=== PATIENT | female | born 1960 | race Caucasian/White ===

== ENCOUNTER 2017-10-23 07:00 | Emergency (ER) | payer BC ==
[2017-10-23 08:01] LABS: BASO % 0.6 % (0.0-1.0); EOS # 0.1 10^3/uL (0.0-0.50); EOS % 2.8 % (0.0-3.0); HEMATOCRIT 40.9 % (36.0-47.0); HEMOGLOBIN 13.8 g/dl (12.0-16.0); IMMATURE GRANULOCYTE % 0.3 % (0-0); LYMPH # 1.2 10^3/uL (1.5-4.5); LYMPH % 38.3 % (24.0-44.0); MEAN CORPUSCULAR HEMOGLOBIN 29.6 pg (27.0-33.0); MEAN CORPUSCULAR HGB CONC 33.7 g/dl (32.0-36.5); MEAN CORPUSCULAR VOLUME 87.8 fl (80.0-96.0); MONO # 0.2 10^3/uL (0.0-0.8); MONO % 7.5 % (0.0-5.0); NEUTROPHILS # 1.6 10^3/uL (1.8-7.7); NEUTROPHILS % 50.5 % (36.0-66.0); PLATELET COUNT, AUTOMATED 134 10^3/uL (150-450); RED BLOOD COUNT 4.66 10^6/uL (4.00-5.40); WHITE BLOOD COUNT 3.2 10^3/uL (4.0-10.0)
[2017-10-23 08:06] LABS: KETONE, URINE AUTO RFX TRACE mg/dL (NEGATIVE); MUCUS, URINE RFX SMALL (NEGATIVE); NITRITE, URINE AUTO RFX NEGATIVE (NEGATIVE); RBC, URINE AUTO RFX TNTC /HPF (0-3); SPECIFIC GRAVITY UR AUTO RFX 1.029 (1.002-1.035); SQUAM EPITHELIAL CELL UR AURFX 3 /HPF (0-6); WBC, URINE AUTO RFX 4 /HPF (0-3)
[2017-10-23 08:07] LABS: LEUKOCYTE ESTERASE UR AUTO RFX TRACE (NEGATIVE)
[2017-10-23] MEDS: NS 1,000 ML IV (08:08)
[2017-10-23 08:22] LABS: ANION GAP 6 MEQ/L (8-16); BLOOD UREA NITROGEN 13 MG/DL (7-18); CALCIUM LEVEL 8.7 MG/DL (8.5-10.1); CARBON DIOXIDE LEVEL 30 MEQ/L (21-32); CHLORIDE LEVEL 103 MEQ/L (98-107); CREATININE FOR GFR 0.81 MG/DL (0.55-1.02); GLOMERULAR FILTRATION RATE > 60.0 (>51); GLUCOSE, FASTING 239 MG/DL (70-105); POTASSIUM SERUM 3.2 MEQ/L (3.5-5.1); SODIUM LEVEL 139 MEQ/L (136-145)
[2017-10-23] MEDS ORDERED: POTASSIUM CHLORIDE 10 MEQ SR TABLET As Ordered (10:44)
[2017-10-23] MEDS: POTASSIUM CHLORIDE 10 MEQ SR TABLET PO (10:53)
== END 2017-10-23 10:58 | disposition home or self-care (01) ==
LOC: M ED 07:00
DX: R10.9 Unspecified abdominal pain (principal); R31.9 Hematuria, unspecified; E87.6 Hypokalemia; E11.9 Type 2 diabetes mellitus without complications; I10 Essential (primary) hypertension; K21.9 Gastro-esophageal reflux disease without esophagitis; G89.29 Other chronic pain; M54.9 Dorsalgia, unspecified; Z79.899 Other long term (current) drug therapy; Z79.84 Long term (current) use of oral hypoglycemic drugs; Z87.891 Personal history of nicotine dependence
CPT/HCPCS: 76775

== ENCOUNTER → 2017-11-29 | Outpatient (CLI) | payer BC | LOC: M WHC 08:42 | DX: Z12.31 Encounter for screening mammogram for malignant neoplasm of breast (principal); Z78.0 Asymptomatic menopausal state | CPT/HCPCS: 77067 ==

== ENCOUNTER → 2017-11-29 | Outpatient (REF) | payer BC | LOC: M SFHCWAGY 08:57 | DX: Z12.4 Encounter for screening for malignant neoplasm of cervix (principal) | CPT/HCPCS: G0123 ==

== ENCOUNTER → 2018-01-16 | Day surgery (SDC) | payer BC ==
[~2018-01-16] MED LIST: LIDOCAINE 1% MDV 20ML VIAL As Ordered; PROPOFOL 200 MG/20 ML VIAL As Ordered
[2018-01-16] MEDS: NS 1,000 ML IV (07:45)
== END | disposition home or self-care (01) ==
LOC: M OPP 07:20
DX: Z12.11 Encounter for screening for malignant neoplasm of colon (principal); D12.4 Benign neoplasm of descending colon; K57.30 Diverticulosis of large intestine without perforation or abscess without bleeding; K64.8 Other hemorrhoids; I10 Essential (primary) hypertension; E78.5 Hyperlipidemia, unspecified; E11.9 Type 2 diabetes mellitus without complications; K21.9 Gastro-esophageal reflux disease without esophagitis; M19.90 Unspecified osteoarthritis, unspecified site; M54.2 Cervicalgia; F41.9 Anxiety disorder, unspecified; Z78.0 Asymptomatic menopausal state; Z87.442 Personal history of urinary calculi; Z79.84 Long term (current) use of oral hypoglycemic drugs; Z79.899 Other long term (current) drug therapy; Z80.0 Family history of malignant neoplasm of digestive organs; Z80.1 Family history of malignant neoplasm of trachea, bronchus and lung
CPT/HCPCS: 45385

== ENCOUNTER → 2018-02-03 | Outpatient (CLI) | payer BC ==
[2018-02-03 08:05] LABS: BASO % 0.7 % (0.0-1.0); EOS # 0.1 10^3/uL (0.0-0.50); EOS % 2.6 % (0.0-3.0); HEMATOCRIT 40.7 % (36.0-47.0); HEMOGLOBIN 13.8 g/dl (12.0-15.5); IMMATURE GRANULOCYTE % 0.2 % (0-3.0); LYMPH # 1.5 10^3/uL (1.5-4.5); LYMPH % 34.8 % (24.0-44.0); MEAN CORPUSCULAR HEMOGLOBIN 29.8 pg (27.0-33.0); MEAN CORPUSCULAR HGB CONC 33.9 g/dl (32.0-36.5); MEAN CORPUSCULAR VOLUME 87.9 fl (80.0-96.0); MONO # 0.3 10^3/uL (0.0-0.8); MONO % 7.4 % (0.0-5.0); NEUTROPHILS # 2.3 10^3/uL (1.8-7.7); NEUTROPHILS % 54.3 % (36.0-66.0); PLATELET COUNT, AUTOMATED 164 10^3/uL (150-450); RED BLOOD COUNT 4.63 10^6/uL (4.00-5.40); WHITE BLOOD COUNT 4.2 10^3/uL (4.0-10.0)
[2018-02-03 08:24] LABS: ESTIMATED AVERAGE GLUCOSE 189 MG/DL (60-110); HEMOGLOBIN A1c 8.2 %
[2018-02-03 08:27] LABS: ALBUMIN/GLOBULIN RATIO 1.25 (1.00-1.93); ALKALINE PHOSPHATASE 68 U/L (45-117); ALT/SGPT 56 U/L (12-78); ANION GAP 9 MEQ/L (8-16); AST/SGOT 22 U/L (7-37); BILIRUBIN,TOTAL 0.4 MG/DL (0.2-1.0); BLOOD UREA NITROGEN 15 MG/DL (7-18); CALCIUM LEVEL 8.8 MG/DL (8.5-10.1); CARBON DIOXIDE LEVEL 29 MEQ/L (21-32); CHLORIDE LEVEL 104 MEQ/L (98-107); GLOMERULAR FILTRATION RATE > 60.0 (>51); GLUCOSE, FASTING 148 MG/DL (70-100); POTASSIUM SERUM 3.6 MEQ/L (3.5-5.1); SODIUM LEVEL 142 MEQ/L (136-145); TOTAL PROTEIN 7.2 GM/DL (6.4-8.2)
== END ==
LOC: M LAB 07:41
DX: E11.9 Type 2 diabetes mellitus without complications (principal)

== ENCOUNTER → 2018-10-28 | Outpatient (CLI) | payer BC ==
[~2018-10-28] MED LIST changes: +ASTE137S; +ATOR1TAB19 PO; -LIDOCAINE 1% MDV 20ML VIAL As Ordered; +LISI10TA4 PO; +LISIPOW PO; +METF500T4 PO; +NAPR-885 PO; +NEXIUM PO; +PERCOCET PO; -PROPOFOL 200 MG/20 ML VIAL As Ordered; +TYLE325T5 PO; +TYLENOL PO; +[UNRECOGNIZED DRUG - CODE] PO; +[UNRECOGNIZED DRUG - OTHER] PO
--- NOTE | 2018-10-29 06:14 | REP ---
Clinical: Radiculopathy. Comparison: 07/21/2013 . Technique: AP, lateral, flexion/extension, bilateral oblique, and open-mouth views. Findings: The patient is noted to be status post anterior fixation at C5-C7. Alignment and lordosis is maintained. There is no evidence for acute fracture / compression injury or subluxation. No significant degenerative changes are appreciated. Oblique views demonstrate patent neural foramen. Open mouth view demonstrates normal C1-C2 articulation and odontoid process. Impression: Status post anterior fixation. Otherwise normal, age-appropriate cervical spine series Electronically Signed by Ryland Mclaughlin MD 10/29/2018 06:06 A
== END ==
LOC: M RAD 16:24
PROVIDERS: ATTEND Family Medicine
DX: M54.12 Radiculopathy, cervical region (principal)

== ENCOUNTER → 2018-12-30 | Outpatient (REF) | payer BC ==
[2018-12-30 14:09] LABS: BASO % 0.3 % (0.0-1.0); EOS # 0.2 10^3/uL (0.0-0.50); EOS % 1.7 % (0.0-3.0); HEMATOCRIT 42.5 % (36.0-47.0); HEMOGLOBIN 14.8 g/dl (12.0-15.5); LYMPH % 22.5 % (24.0-44.0); MEAN CORPUSCULAR HEMOGLOBIN 29.4 pg (27.0-33.0); MEAN CORPUSCULAR HGB CONC 34.8 g/dl (32.0-36.5); MEAN CORPUSCULAR VOLUME 84.3 fl (80.0-96.0); MONO # 0.7 10^3/uL (0.0-0.8); MONO % 7.8 % (0.0-5.0); NEUTROPHILS # 5.9 10^3/uL (1.8-7.7); NEUTROPHILS % 66.4 % (36.0-66.0); PLATELET COUNT, AUTOMATED 278 10^3/uL (150-450); RED BLOOD COUNT 5.04 10^6/uL (4.00-5.40); WHITE BLOOD COUNT 8.9 10^3/uL (4.0-10.0)
[2018-12-30 14:29] LABS: ALBUMIN 4.1 GM/DL (3.2-5.2); ALT/SGPT 104 U/L (12-78); AMYLASE 39 U/L (25-115); BILIRUBIN,TOTAL 0.6 MG/DL (0.2-1.0); BLOOD UREA NITROGEN 13 MG/DL (7-18); CALCIUM LEVEL 9.4 MG/DL (8.5-10.1); CARBON DIOXIDE LEVEL 26 MEQ/L (21-32); CHLORIDE LEVEL 97 MEQ/L (98-107); CREATININE FOR GFR 0.78 MG/DL (0.55-1.30); GLOMERULAR FILTRATION RATE > 60.0 (>51); GLUCOSE, FASTING 158 MG/DL (70-100); LIPASE 180 U/L (73-393); POTASSIUM SERUM 2.9 MEQ/L (3.5-5.1); SODIUM LEVEL 136 MEQ/L (136-145); TOTAL PROTEIN 7.3 GM/DL (6.4-8.2)
== END ==
LOC: M LAB REF 13:37
PROVIDERS: ATTEND Family Medicine
DX: R19.7 Diarrhea, unspecified (principal)

== ENCOUNTER → 2019-01-01 | Outpatient (CLI) | payer BC ==
[2019-01-01 09:30] LABS: BLOOD UREA NITROGEN 10 MG/DL (7-18); CALCIUM LEVEL 9.1 MG/DL (8.5-10.1); CARBON DIOXIDE LEVEL 31 MEQ/L (21-32); CHLORIDE LEVEL 100 MEQ/L (98-107); CREATININE FOR GFR 0.78 MG/DL (0.55-1.30); GLOMERULAR FILTRATION RATE > 60.0 (>51); GLUCOSE, FASTING 198 MG/DL (70-100); POTASSIUM SERUM 3.7 MEQ/L (3.5-5.1); SODIUM LEVEL 140 MEQ/L (136-145)
== END ==
LOC: M LAB 08:00
PROVIDERS: ATTEND Family Medicine
DX: E87.6 Hypokalemia (principal)

== ENCOUNTER → 2019-01-23 | Outpatient (REF) | payer BC ==
[~2019-01-23] MED LIST changes: +OXYC1TAB23 PO; -PERCOCET PO
== END ==
LOC: M LAB REF 12:59
PROVIDERS: ATTEND Family Medicine
DX: Z12.4 Encounter for screening for malignant neoplasm of cervix (principal)

== ENCOUNTER → 2019-01-23 | Outpatient (REF) | payer BC | LOC: M SFHCWAGY 08:40 | PROVIDERS: ATTEND Family Medicine | DX: Z12.4 Encounter for screening for malignant neoplasm of cervix (principal) ==

== ENCOUNTER → 2019-01-23 | Outpatient (CLI) | payer BC ==
--- NOTE | 2019-01-23 09:15 | REPMRS ---
Patient History The patient states she has not had a clinical breast exam in over a year. Patient is postmenopausal. Family history of colorectal cancer at age 50 or over in maternal grandmother. Digital Woman Screen Mammo: January 23, 2019 - Exam #: [id number] Bilateral CC and MLO view(s) were taken. Technologist: Mylene Mcclain, Technologist Prior study comparison: November 29, 2017, digital woman screen mammo performed at [facility]. March 13, 2011, bilateral digital mammo screening bilat performed at [facility]. January 24, 2009, bilateral digital mammo screening bilat performed at [facility]. FINDINGS: There are scattered fibroglandular densities. There has been no change in the appearance of the mammogram from the prior studies. There is a mild amount of scattered fibroglandular density which is fairly symmetric. There is no interval development of dominant mass, architectural distortion, or clustered microcalcification suggestive of malignancy. 3-D tomosynthesis shows no additional findings. Assessment: BI-RADS/ACR category 1 mammogram. Negative Mammogram. Recommendation Routine screening mammogram of both breasts in 1 year (for women over age 40). This patient's Lifetime Breast Cancer RIsk is estimated at 5.6 %. This mammogram was interpreted with the aid of an FDA-approved computer-aided dectection system. Electronically Signed By: Dirk Can MD 01/23/19 0915
== END ==
LOC: M WHC 08:07
PROVIDERS: ATTEND Family Medicine
DX: Z12.31 Encounter for screening mammogram for malignant neoplasm of breast (principal); Z78.0 Asymptomatic menopausal state

== ENCOUNTER 2019-05-03 20:22 | Emergency (ER) | payer BC ==
[~2019-05-03] VITALS: Ht 157.5 cm; Wt 79.1 kg
[2019-05-03 21:03] LABS: BASO # 0.1 10^3/uL (0.0-0.2); EOS % 15.5 % (0.0-3.0); HEMATOCRIT 41.2 % (36.0-47.0); HEMOGLOBIN 13.6 g/dl (12.0-15.5); LYMPH # 2.2 10^3/uL (1.5-4.5); LYMPH % 34.9 % (24.0-44.0); MEAN CORPUSCULAR HEMOGLOBIN 29.8 pg (27.0-33.0); MEAN CORPUSCULAR VOLUME 90.2 fl (80.0-96.0); MONO # 0.4 10^3/uL (0.0-0.8); MONO % 6.8 % (0.0-5.0); NEUTROPHILS # 2.6 10^3/uL (1.8-7.7); NEUTROPHILS % 41.5 % (36.0-66.0); PLATELET COUNT, AUTOMATED 154 10^3/uL (150-450); RED BLOOD COUNT 4.57 10^6/uL (4.00-5.40); WHITE BLOOD COUNT 6.2 10^3/uL (4.0-10.0)
[2019-05-03 21:19] LABS: ALBUMIN 3.8 GM/DL (3.2-5.2); ALT/SGPT 42 U/L (12-78); BILIRUBIN,DIRECT < 0.1 MG/DL (0.0-0.2); BILIRUBIN,TOTAL 0.3 MG/DL (0.2-1.0); BLOOD UREA NITROGEN 9 MG/DL (7-18); CALCIUM LEVEL 9.2 MG/DL (8.5-10.1); CARBON DIOXIDE LEVEL 28 MEQ/L (21-32); CHLORIDE LEVEL 104 MEQ/L (98-107); CREATININE FOR GFR 0.75 MG/DL (0.55-1.30); GLOMERULAR FILTRATION RATE > 60.0 (>51); GLUCOSE, FASTING 186 MG/DL (70-100); LIPASE 98 U/L (73-393); POTASSIUM SERUM 3.6 MEQ/L (3.5-5.1); SODIUM LEVEL 141 MEQ/L (136-145)
[2019-05-03] MEDS ORDERED: ONDANSETRON 4MG/2ML VIAL (J2405) IV ONE (21:45)
[2019-05-03] MEDS ORDERED: NS 1,000 ML IV ONE (21:45)
[2019-05-03 21:52] LABS: TROPONIN I < 0.02 NG/ML (< 0.10)
[2019-05-03] MEDS ORDERED: KETOROLAC 30 MG/ML VIAL (J1885) IV ONE (23:00)
--- NOTE | 2019-05-03 23:12 | REPVR ---
EXAM: US Abdomen Limited, Right Upper Quadrant EXAM DATE/TIME: 05/03/2019 10:18 PM CLINICAL HISTORY: 58 years old, female; Abdominal pain; Acute; Additional info: Ruq pain, nausea TECHNIQUE: Imaging protocol: Real-time ultrasound of the abdomen with image documentation. Examination was focused on the right upper quadrant. COMPARISON: RENAL US 10/23/2017 8:13 AM FINDINGS: Liver: The liver is diffusely echogenic relative to the right kidney, findings consistent with steatosis. Gallbladder: 3.6 x 1.6 cm gallstone within the gallbladder. Positive sonographic Macias's sign. Findings consistent with cholecystitis. Common bile duct: Normal. Measures 4.3 mm. No stones. No dilation. Pancreas: Visualized segments of the pancreas appear unremarkable. Right kidney: Right kidney measures 12.7 x 6 x 5.4 cm. IMPRESSION: 1. Hepatic steatosis. 2. 3.6 x 1.6 cm gallstone within the gallbladder. Positive sonographic Macias's sign. Findings consistent with cholecystitis. Electronically signed by: Noman Hunter On 05/03/2019 23:11:50 PM
[2019-05-03 23:25] VITALS: BP 130/60
[2019-05-03] MEDS ORDERED: ONDA4TAB6 PO (23:26)
--- NOTE | 2019-05-04 05:51 | ECGEPIP ---
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 Order Number: [id number] Reading MD: Hermilo Jennings Measurements Intervals [place] Rate: 65 P: 11 KS: 184 QRS: -7 QRSD: 98 T: 22 QT: 450 QTc: 469 Interpretive Statements SINUS RHYTHM LOW QRS VOLTAGE IN PRECORDIAL LEADS INCOMPLETE RIGHT BUNDLE BRANCH BLOCK NSTTW ABNORMALITIES NO PRIORS FOR COMPARISON Electronically Signed on 05-04-2019 5:51:31 EDT by Hermilo Jennings
--- NOTE | 2019-05-11 08:19 | ED PDOC ---
Post-Departure Follow-Up alexandria linder and tammie faxed formal report of us for fu Julianne Steiner MD May 11, 2019 08:19
[2019-05-13] MEDS ORDERED: HYDR25TAB PO (10:45)
[2019-05-13] MEDS ORDERED: FLON1SPR (10:45)
[2019-05-13] MEDS ORDERED: NEXI40GR PO (10:45)
[2019-05-13] MEDS ORDERED: CLAR10CA3 PO (10:45)
[2019-05-13] MEDS ORDERED: ACET-840 PO (10:45)
[2019-05-13] MEDS ORDERED: IBUP-1114 PO (10:45)
== END 2019-05-03 23:35 | disposition home or self-care (01) ==
LOC: M ED 20:22
DX: K80.50 Calculus of bile duct without cholangitis or cholecystitis without obstruction (principal); I45.19 Other right bundle-branch block; K76.0 Fatty (change of) liver, not elsewhere classified; I10 Essential (primary) hypertension; E78.00 Pure hypercholesterolemia, unspecified; K21.9 Gastro-esophageal reflux disease without esophagitis; J44.9 Chronic obstructive pulmonary disease, unspecified; M54.9 Dorsalgia, unspecified; M54.2 Cervicalgia; E11.9 Type 2 diabetes mellitus without complications; F41.9 Anxiety disorder, unspecified; J30.2 Other seasonal allergic rhinitis; Z79.84 Long term (current) use of oral hypoglycemic drugs; Z79.899 Other long term (current) drug therapy
CPT/HCPCS: 76705; 80048; 80076; 81001; 83690; 84484; 85025; 87086; 93005; 96374; 96375; 99284; J1885; J2405

== ENCOUNTER → 2019-05-12 | Outpatient (CLI) | payer BC ==
[~2019-05-12] MED LIST changes: +ACET-840 PO; +CLAR10CA3 PO; +FLON1SPR; +HYDR25TAB PO; +IBUP-1114 PO; +NEXI40GR PO; +ONDA4TAB6 PO
[2019-05-12 08:21] LABS: BASO # 0.1 10^3/uL (0.0-0.2); BASO % 1.4 % (0.0-1.0); EOS # 0.2 10^3/uL (0.0-0.50); EOS % 4.6 % (0.0-3.0); HEMATOCRIT 40.2 % (36.0-47.0); HEMOGLOBIN 13.2 g/dl (12.0-15.5); LYMPH # 1.3 10^3/uL (1.5-4.5); LYMPH % 38.2 % (24.0-44.0); MEAN CORPUSCULAR HEMOGLOBIN 29.9 pg (27.0-33.0); MEAN CORPUSCULAR HGB CONC 32.8 g/dl (32.0-36.5); MONO # 0.3 10^3/uL (0.0-0.8); MONO % 9.2 % (0.0-5.0); NEUTROPHILS # 1.6 10^3/uL (1.8-7.7); NEUTROPHILS % 46.6 % (36.0-66.0); PLATELET COUNT, AUTOMATED 208 10^3/uL (150-450); RED BLOOD COUNT 4.42 10^6/uL (4.00-5.40); WHITE BLOOD COUNT 3.5 10^3/uL (4.0-10.0)
[2019-05-12 08:42] LABS: ALBUMIN 3.6 GM/DL (3.2-5.2); ALT/SGPT 29 U/L (12-78); BILIRUBIN,TOTAL 0.4 MG/DL (0.2-1.0); BLOOD UREA NITROGEN 14 MG/DL (7-18); CALCIUM LEVEL 9.2 MG/DL (8.5-10.1); CARBON DIOXIDE LEVEL 30 MEQ/L (21-32); CHLORIDE LEVEL 102 MEQ/L (98-107); CHOLESTEROL LEVEL 127 MG/DL (<200); CHOLESTEROL RISK RATIO 3.527 (<5); CREATININE FOR GFR 0.72 MG/DL (0.55-1.30); GLOMERULAR FILTRATION RATE > 60.0 (>51); GLUCOSE, FASTING 142 MG/DL (70-100); HDL CHOLESTEROL 36 MG/DL (>40); LDL CHOLESTEROL 52 MG/DL (<100); NON-HDL-C 91 MG/DL; POTASSIUM SERUM 3.8 MEQ/L (3.5-5.1); SODIUM LEVEL 140 MEQ/L (136-145); TOTAL PROTEIN 7.2 GM/DL (6.4-8.2); TRIGLYCERIDES LEVEL 195 MG/DL (<150)
[2019-05-12 08:52] LABS: MALB URINE SIEMENS 14.2 MG/L; MAU/CREAT RATIO 8.4 MCG/MG (0.0-30.0)
[2019-05-12 09:23] LABS: HEMOGLOBIN A1c 8.6 %
== END ==
LOC: M LAB 07:14
PROVIDERS: ATTEND Family Medicine
DX: Z01.818 Encounter for other preprocedural examination (principal); E11.9 Type 2 diabetes mellitus without complications

== ENCOUNTER 2019-05-22 08:52 | Day surgery (SDC) | payer BC ==
[~2019-05-22] VITALS: Ht 157.5 cm; Wt 75.7 kg
[~2019-05-22 08:52] MED LIST changes: +LIDOCAINE 1% MDV 20ML VIAL SQ PRN; +LR 1,000 ML IV ONE
[2019-05-22] MEDS ORDERED: BUPIVACAINE/EPIN 0.25% 30 ML VIAL As Ordered ONE (10:53)
[2019-05-22] MEDS ORDERED: ONDANSETRON 4MG/2ML VIAL (J2405) As Ordered ONE (11:16)
[2019-05-22] MEDS ORDERED: MIDAZOLAM INJ 2 MG/2 ML VIAL (J2250) As Ordered ONE (11:16)
[2019-05-22] MEDS ORDERED: fentaNYL 100 MCG/2 ML INJECTION (J3010) As Ordered ONE ×2 (11:16→12:15)
[2019-05-22] MEDS ORDERED: LIDOCAINE 2% INJ 100 MG/5 ML SDV (FOR ANES.) As Ordered ONE (11:16)
[2019-05-22] MEDS ORDERED: ROCURONIUM BROMIDE 50 MG/5 ML VIAL As Ordered ONE (11:16)
[2019-05-22] MEDS ORDERED: dexameTHASONE 4 MG/ML 1ML VIAL (J1100) As Ordered ONE (11:16)
[2019-05-22] MEDS ORDERED: SUGAMMADEX SODIUM 500 MG/5 ML VIAL (BRIDION) As Ordered ONE (11:16)
[2019-05-22] MEDS ORDERED: PROPOFOL 200 MG/20 ML VIAL As Ordered ONE (11:16)
[2019-05-22] MEDS ORDERED: KETOROLAC 60 MG/2 ML VIAL (J1885) As Ordered ONE (11:45)
[2019-05-22] MEDS: fentaNYL 100 MCG/2 ML INJECTION (J3010) IV PRN ×4 (12:16→12:37)
[2019-05-22] MEDS ORDERED: LR 1,000 ML IV SCH (12:30)
[2019-05-22] MEDS ORDERED: ONDANSETRON 4MG/2ML VIAL (J2405) IV PRN (12:30)
[2019-05-22] MEDS ORDERED: METOCLOPRAMIDE INJ 10MG/2ML VIAL (J2765) IV PRN (12:30)
[2019-05-22] MEDS ORDERED: NORCO, ANEXSIA 5/325MG TABLET (HYDROcodone/ACETAMINOPHEN) PO PRN (12:30)
[2019-05-22] MEDS: PERCOCET 5MG/325MG TAB PO PRN ×2 (12:34→13:09)
[2019-05-22 14:05] VITALS: BP 119/64
--- NOTE | 2019-05-26 14:08 | RO ---
DATE OF PROCEDURE: 05/22/2019 PREOPERATIVE DIAGNOSIS: Symptomatic cholelithiasis. POSTOPERATIVE DIAGNOSIS: Symptomatic cholelithiasis. PROCEDURE: Laparoscopic cholecystectomy. SURGEON: Dr. España AUTO DRIVER: None. ANESTHESIA: General. ESTIMATED BLOOD LOSS: 5. COMPLICATIONS: None. INDICATIONS FOR PROCEDURE: The patient is a 58-year-old female who presents for right upper quadrant abdominal pain and found to have symptomatic cholelithiasis with a 3.6 cm gallstone. Recommendation is to proceed laparoscopic, possible open cholecystectomy. Risks and benefits of the procedure not limited to, but including bleeding, damage to surrounding structures, need for further surgery were discussed in detail with the patient. Informed was obtained and procedure was planned. PROCEDURE IN DETAIL: The patient was brought back to operating room #8. After sufficient sedation, the abdomen was sterilely prepped. Next, a time-out was done to confirm proper patient and proper procedure. Following that an 11 mm incision was made in left upper quadrant. Veress needle inserted and the abdomen was insufflated to 50 mmHg. Next, a 5 mm supraumbilical midline incision was made just above the umbilicus. A 5 mm Optiview port was used to gain access to the abdomen. Once the abdomen was entered, the Veress needle site was examined and there were no signs of any injury. The Veress needle was removed and replaced with an 11 mm port. Two more 5 mm ports were then placed in the right upper quadrant. The fundus of gallbladder was elevated up towards the right shoulder. Omental adhesions were carefully dissected free using blunt dissection along with blunt dissection to remove the stomach as well. Once this was all freed up, I was able to dissect around the neck of the gallbladder with blunt dissection. Once the cystic duct and cystic artery were both clearly identified. They were both doubly clipped and cut. The gallbladder was then removed from gallbladder fossa using electrocautery. Electrocautery was used to control some hemostasis on the liver bed. Once this was all completed, the gallbladder was placed inside of a 10 mm EndoCatch bag and removed from one of the 5 mm ports and reached in with some long Nelly's to try and break up the large gallstone but was unable to do so. I then brought the gallbladder out through the subxiphoid port to the left of midline. I had open up the incision to remove it due to large 3.6 cm stone. Once it was removed, I used Vicente-Lopez needle and #0 Vicryl suture to reapproximate the fascia, #3-0 Vicryl interrupted sutures used to close the subcutaneous tissues and #4-0 Vicryl to close the skin incisions. The abdomen was then cleaned and dried, 4 x 4 and tape were applied, thus ending procedure.
== END 2019-05-22 14:20 | disposition home or self-care (01) ==
LOC: M SDC 08:52
PROVIDERS: ATTEND Surgery
DX: K80.10 Calculus of gallbladder with chronic cholecystitis without obstruction (principal); I10 Essential (primary) hypertension; E78.5 Hyperlipidemia, unspecified; E11.9 Type 2 diabetes mellitus without complications; Z79.84 Long term (current) use of oral hypoglycemic drugs; K44.9 Diaphragmatic hernia without obstruction or gangrene; K21.9 Gastro-esophageal reflux disease without esophagitis; Z79.899 Other long term (current) drug therapy
CPT/HCPCS: 47562; 88304; J1100; J1885; J2250; J2405; J3010

== ENCOUNTER 2019-07-02 07:00 | Outpatient (RCR) | payer BC, OTHER ==
[~2019-07-02 07:00] MED LIST changes: -LIDOCAINE 1% MDV 20ML VIAL SQ PRN; -LR 1,000 ML IV ONE; +METF-791 PO; -METF500T4 PO
== END 2019-07-06 ==
LOC: M PT 07:00
PROVIDERS: ATTEND Orthopaedic Surgery
DX: Z47.89 Encounter for other orthopedic aftercare (principal); M50.321 Other cervical disc degeneration at C4-C5 level; Z98.1 Arthrodesis status

== ENCOUNTER → 2019-08-06 | Outpatient (RCR) | payer OTHER | LOC: M PT 07-07 08:43 | PROVIDERS: ATTEND Orthopaedic Surgery | DX: M50.321 Other cervical disc degeneration at C4-C5 level (principal); Z98.1 Arthrodesis status ==

== ENCOUNTER 2019-08-12 07:00 | Outpatient (RCR) | payer OTHER | END 2019-09-05 | LOC: M PT 07:00 | PROVIDERS: ATTEND Orthopaedic Surgery | DX: Z47.89 Encounter for other orthopedic aftercare (principal) ==

== ENCOUNTER → 2020-10-20 | Outpatient (CLI) | payer BC ==
[~2020-10-20] MED LIST changes: +E-Z-GAS II EFFERVESCENT PACKET (SODIUM BICARB./CITRIC ACID/SIMETHICONE) As Ordered ONE; +E-Z-HD 98% w/w 340GM SUSP BTL As Ordered ONE; +E-Z-PAQUE 96% w/w SUSP 176GM BTL As Ordered ONE; -METF-791 PO; +METF-838 PO
--- NOTE | 2020-10-21 17:54 | REP ---
INDICATION: DYSPHAGIA, GERD. COMPARISON: Upper GI done 07/04/2010 TECHNIQUE: This procedure was performed by [facility], under the direct supervision of Dr. Meade. Images were reviewed with Dr. Meade prior to dictation. Liquid barium and gas producing crystals were given in the erect position, as well as liquid barium in the prone oblique position in order to perform a double contrast esophagram examination. FINDINGS: A single view PA chest x-ray is submitted as a direct support staff film. The superior mediastinal structures are midline. The heart size is within normal limits. The lungs are clear. Hardware from previous cervical spine fusion is visualized. The oral and pharyngeal stages of deglutition were unremarkable. Esophageal transport is prompt and efficient and there is no evidence of esophagitis, stricture, or mucosal ring. There is no evidence of a hiatal hernia. There was no gastroesophageal reflux noted . IMPRESSION: Unremarkable esophagram. 0.1 minutes of fluoroscopy time was utilized for this procedure. Some fluoroscopic images are performed with last image hold technology. These images require no additional radiation. <Electronically signed by [facility]idi [facility] > 10/20/20 173 <Electronically signed by Manjeet Meade > 10/21/20 1757
== END ==
LOC: M RAD 07:34
PROVIDERS: ATTEND Physician Assistant Medical
DX: R13.10 Dysphagia, unspecified (principal); K21.9 Gastro-esophageal reflux disease without esophagitis

== ENCOUNTER → 2020-11-23 | Outpatient (CLI) | payer BC ==
[~2020-11-23] MED LIST changes: +CARI250T PO; -E-Z-GAS II EFFERVESCENT PACKET (SODIUM BICARB./CITRIC ACID/SIMETHICONE) As Ordered ONE; -E-Z-HD 98% w/w 340GM SUSP BTL As Ordered ONE; -E-Z-PAQUE 96% w/w SUSP 176GM BTL As Ordered ONE; +HYDR-3490 PO; -HYDR25TAB PO; +LISI10TA22 PO; -LISI10TA4 PO
== END ==
LOC: M LABSMTC 10:42
PROVIDERS: ATTEND Anesthesiology
DX: Z01.812 Encounter for preprocedural laboratory examination (principal); Z20.822 Contact with and (suspected) exposure to COVID-19

== ENCOUNTER 2020-11-28 13:29 | Day surgery (SDC) | payer BC ==
[~2020-11-28] VITALS: Ht 157.5 cm; Wt 74.8 kg
[~2020-11-28 13:29] MED LIST changes: +LIDOCAINE 2% 100MG/5ML SDV (FOR ANES.) As Ordered ONE; +NS 1,000 ML IV ONE; +fentaNYL 100 MCG/2 ML INJECTION (J3010) As Ordered ONE; +propofoL 200 MG/20 ML VIAL As Ordered ONE
--- OUTSIDE RECORDS SUMMARY | 2020-11-28 13:36 | CCD | Continuity of Care Document ---
Author Author Martita PEARSON P.ANorman Organization Unknown Address [address] [place] [address], [address] [place] [address] Phone [phone] Care Team Providers Care Depalletizer Operator Name Role Phone Chad Moody MD [facility] [phone] Problems Active Problems Provider Date Closed fracture of upper end of humerus Onset: 07/28/1999 Pure hypercholesterolemia Anaya Duffy Onset: 12/31/2019 Social History Type Date Description Comments Sex Unknown ETOH Use Rarely consumes alcohol Tobacco Use Start: Unknown End: Unknown Patient is a former smoker Allergies, Adverse Reactions, Alerts Description No Known Drug Allergies Medications Active Medications SIG Qnty Indications Ordering Provide r Date Valium 5mg Tablets take one half hour prior to mri..may repeat in 30 minutes if no effect..do not drive to or from mri 2tabs M54.2 Rey Greene MD 09/28/2020 Soma 250mg Tablets 1 tablet twice a day prn/pain 60tabs D. Martin Danielson MD 019 Hydrochlorothiazide 25mg Tablets 1 by mouth every day Unknown Lisinopril 10mg Tablets 1 by mouth every day Unknown Atorvastatin Calcium 10mg Tablets 1 by mouth every day Unknown Metformin HCL 850mg Tablets Unknown Nexium 20mg Capsules DR 1 by mouth every day Unknown Immunizations Description No Information Available Vital Signs Date Vital Result Comment 04/22/2019 8:38am Body Temperature 98.3 F Height 62 inches 5'2" Weight 172.38 lb BMI (Body Mass Index) 31.5 kg/m2 03/08/2015 4:04pm Body Temperature 98.3 F Height 62 inches 5'2" Weight 187.38 lb BMI (Body Mass Index) 34.3 kg/m2 Results Description No Information Available Procedures Description No Information Available Medical Devices Description No Information Available Encounters Type Date Location Provider Dx Diagnosis Office Visit 09/28/2020 2:15p [place] Anaya Duffy M54.2 Cervicalgia Z98.1 Arthrodesis status Assessments Date Code Description Provider 09/28/2020 M54.2 Cervicalgia Anaya Lal 09/28/2020 Z98.1 Arthrodesis status Anaya Snider Plan of Treatment 09/28/2020 - Anaya Duffy* M54.2 Cervicalgia* New Medication:* Valium 5 mg - take one half hour prior to mri..may repeat in 30 minutes if no effect..do not drive to or from mri * New Xrays:* MRI C-spine with and without contrast, Ordered: 09/28/20 * Follow up:* with M for results of mri of cervical spine * Z98.1 Arthrodesis status Functional Status Description No Information Available Mental Status Description No Information Available Referrals Refer to Reason for Referral Status Appt Date Rey Greene MD MRI C SPINE WITH AND WITHOUT DELROY WRITTEN AUTH AND ONECALL TO [facility]. TYE Created [facility], [address] [place], [place] [address] [phone]
--- OUTSIDE RECORDS SUMMARY | 2020-11-28 13:36 | CCD ---
Continuity of Care Document (CCD) Created on: 09/28/2020 Martita Campuzano External Reference #: [id number] : 1960 Sex: Female Author Author Martita PEARSON PNormanANorman Organization Unknown Address [address] [place] [address], [address] [place] [address] Phone [phone] Care Team Providers Care Cabinet Assembler Name Role Phone Chad Moody MD [facility] [phone] Problems Active Problems Provider Date Closed fracture [...] 1 tablet twice a day prn/pain 60tabs Rey Greene MD 07/02/2019 Hydrochlorothiazide 25mg Tablets 1 by mouth every day Unknown Lisinopril 10mg Tablets 1 by mouth every day Unknown Atorvastatin Calcium 10mg Tablets 1 by mouth every day Unknown Metformin HCL 850mg Tablets Unknown Immunizations Description No Information Available Vital [...] Medical Devices Description No Information Available Encounters Description No Information Available Assessments Date Code Description Provider 09/28/2020 M54.2 Cervicalgia Anaya Lal 09/28/2020 Z98.1 Arthrodesis status Anaya Sniedr Plan of Treatment 09/28/2020 - Anaya Duffy* M54.2 Cervicalgia* New Medication:* Valium 5 mg - take one half hour prior to mri..may repeat in 30 minutes if no effect..do not drive to or from mri * New Xrays:* MRI C-spine with and without contrast, Ordered: 09/28/20 * Follow up:* with [facility] for results of mri of cervical spine * Z98.1 Arthrodesis status Functional Status Description No Information Available Mental Status Description No Information Available Referrals Description No Information Available
--- OUTSIDE RECORDS SUMMARY | 2020-11-28 13:36 | CCD ---
Author Author [facility] Organization [facility] Address Unknown Phone Unavailable Care Team Providers Care Pipe Stress Engineer Name Role Phone MILILMARITA, SETFFEN PA Unavailable Unavailable MCELHERAN, STEFFEN PA Unavailable Unavailable MCELHERAN, STEFFEN PA Unavailable Unavailable MCELHERAN, STEFFEN PA Unavailable Unavailable MCELHERAN, STEFFEN PA Unavailable Unavailable MCELHERAN, STEFFEN PA Unavailable Unavailable MCELHERAN, STEFFEN PA Unavailable Unavailable MCELHERAN, STEFFEN PA Unavailable Unavailable MCELHERAN, STEFFEN PA Unavailable Unavailable MCELHERAN, STEFFEN PA Unavailable Unavailable MCELHERAN, STEFFEN PA Unavailable Unavailable MCELHERAN, STEFFEN PA Unavailable Unavailable MCELHERAN, STEFFEN PA Unavailable Unavailable MCELHERAN, STEFFEN PA Unavailable Unavailable MCELAN, STEFFEN PA Unavailable Unavailable MCELAN, STEFFEN PA Unavailable Unavailable MCELAN, STEFFEN PA Unavailable Unavailable MCELHERAN, STEFFEN PA Unavailable Unavailable MCELHERAN, STEFFEN PA Unavailable Unavailable MCELHERAN, STEFFEN PA Unavailable Unavailable MCELHERAN, STEFFEN PA Unavailable Unavailable MCELHERAN, STEFFEN PA Unavailable Unavailable MCELHERAN, STEFFEN PA Unavailable Unavailable MCELHERAN, STEFFEN PA Unavailable Unavailable MCELHERAN, STEFFEN PA Unavailable Unavailable MCELHERAN, STEFFEN PA Unavailable Unavailable MCELHERAN, STEFFEN PA Unavailable Unavailable MCELHERAN, STEFFEN PA Unavailable Unavailable Re-disclosure Warning The records that you are about to access may contain information from federally-assisted alcohol or drug abuse programs. If such information is present, then the following federally mandated warning applies: This information has been disclosed to you from records protected by federal confidentiality rules (42 CFR part 2). The federal rules prohibit you from making any further disclosure of this information unless further disclosure is expressly permitted by the written consent of the person to whom it pertains or as otherwise permitted by 42 CFR part 2. A general authorization for the release of medical or other information is NOT sufficient for this purpose. The Federal rules restrict any use of the information to criminally investigate or prosecute any alcohol or drug abuse patient.The records that you are about to access may contain highly sensitive health information, the redisclosure of which is protected by Article 27-F of the [facility] Public Health law. If you continue you may have access to information: Regarding HIV / AIDS; Provided by facilities licensed or operated by the [facility] Office of Mental Health; or Provided by the [facility] Office for People With Developmental Disabilities. If such information is present, then the following [facility] mandated warning applies: This information has been disclosed to you from confidential records which are protected by state law. State law prohibits you from making any further disclosure of this information without the specific written consent of the person to whom it pertains, or as otherwise permitted by law. Any unauthorized further disclosure in violation of state law may result in a fine or retirement sentence or both. A general authorization for the release of medical or other information is NOT sufficient authorization for further disc losure. Family History Family Member Name Family Member Gender Family Member Status Date o f Status Description Data Source(s) Unknown Unknown Problem [facility] ([facility]) MGM-Dx at age 89 Unknown Female Problem [facility] ([facility] ) Encounters Encounter Providers Location Date Indications Data Source(s ) Outpatient Attender: STEFFEN [facility] 09/28/2020 01:15:00 PM EST [facility] ([facility] ) Outpatient Attender: STEFFEN OS[facility] 12/31/2019 08:45:00 AM EDT [facility] ([facility] ) Medications Medication Brand Name Start Date Product Form Dose Route Admi nistrative Instructions Pharmacy Instructions Status Indications Reaction Description Data Source(s) 250 mg 11/02/2020 12:00:00 AM EST tablet 60 TAKE ONE TABLET BY MOUTH TWICE A DAY NEEDED FOR PAIN MAXIMUM DAILY DOSE = 2 TABLETS TAKE ONE TABLET BY MOUTH TWICE A DAY NEEDED FOR PAIN MAXIMUM DAILY DOSE = 2 TABLETS SOLD: 11/02/2020 [facility] 10 mg 10/24/2020 12:00:00 AM EST tablet 90 TAKE ONE TABLET BY MOUTH ONCE DAILY TAKE ONE TABLET BY MOUTH ONCE DAILY SOLD: 10/26/2020 [facility] 25 mg 10/24/2020 12:00:00 AM EST tablet 90 TAKE ONE TABLET BY MOUTH ONCE DAILY TAKE ONE TABLET BY MOUTH ONCE DAILY SOLD: 10/26/2020 [facility] 5 mg 09/28/2020 12:00:00 AM EST tablet 2 1TAB.BY MOUTH 30MIN.PRIOR TO MRI MAY REPEAT IN 30MIN.IF NO EFFECT DON'T DRIVE MAX 2/DAY 1TAB.BY MOUTH 30MIN.PRIOR TO MRI MAY REPEAT IN 30MIN.IF NO EFFECT DON'T DRIVE MAX 2/DAY SOLD: 09/28/2020 [facility] Diazepam 5 MG Oral Tablet [Valium] Valium 09/28/2020 12:00:00 AM EST active [facility] ([facility]) Esomeprazole 40 MG Delayed Release Oral Capsule ESOMEPRAZOLE MAGNESIUM 07/28/2020 12:00:00 AM EDT capsule,delayed release(DR/EC) 90 TAKE ONE CAPSULE BY MOUTH EVERY DAY TAKE ONE CAPSULE BY MOUTH EVERY DAY SOLD: 08/01/2020 [facility] atorvastatin 10 MG Oral Tablet ATORVASTATIN CALCIUM 07/28/2020 1 2:00:00 AM EDT tablet 90 TAKE ONE TABLET BY MOUTH EVERY D AY TAKE ONE TABLET BY MOUTH EVERY DAY SOLD: 10/26/2020 [facility] 24 HR Metformin hydrochloride 750 MG Extended Release Oral T ablet METFORMIN HCL 07/28/2020 12:00:00 AM EDT tablet extended release 24 hr 180 TAKE ONE TABLET BY MOUTH TWICE A DAY TAKE ONE TABLET BY MOUTH TWICE A DAY SOLD: 11/01/2020 [facility] [facility] Esomeprazole 40 MG Delayed Release Oral Capsule ESOMEPRAZOLE MAGNESIUM 07/28/2020 12:00:00 AM EDT capsule,delayed release(DR/EC) 90 TAKE ONE CAPSULE BY MOUTH EVERY DAY TAKE ONE CAPSULE BY MOUTH EVERY DAY SOLD: 10/20/2020 [facility] 750 mg 07/28/2020 12:00:00 AM EDT tablet extended release 24 hr 180 TAKE ONE TABLET BY MOUTH TWICE A DAY TAKE ONE TABLET BY MOUTH TWICE A DAY SOLD: 08/01/2020 [facility] atorvastatin 10 MG Oral Tablet ATORVASTATIN CALCIUM 07/28/2020 1 2:00:00 AM EDT tablet 90 TAKE ONE TABLET BY MOUTH EVERY D AY TAKE ONE TABLET BY MOUTH EVERY DAY SOLD: 08/01/2020 [facility] 50 mcg/actuation 06/18/2020 12:00:00 AM EDT spray,suspension 16 SPRAY ONE SPRAY IN EACH NOSTRIL EVERY DAY SPRAY ONE SPRAY IN EACH NOSTRIL EVERY DAY SOLD: 06/27/2020 [facility] 10 mg 05/12/2020 12:00:00 AM EDT tablet 90 TAKE ONE TABLET BY MOUTH EVERY DAY TAKE ONE TABLET BY MOUTH EVERY DAY SOLD: 05/17/2020 [facility] 10 mg 05/12/2020 12:00:00 AM EDT tablet 90 TAKE ONE TABLET BY MOUTH EVERY DAY TAKE ONE TABLET BY MOUTH EVERY DAY SOLD: 08/01/2020 [facility] 25 mg 05/12/2020 12:00:00 AM EDT tablet 90 TAKE ONE TABLET BY MOUTH EVERY DAY TAKE ONE TABLET BY MOUTH EVERY DAY SOLD: 08/01/2020 [facility] 25 mg 05/12/2020 12:00:00 AM EDT tablet 90 TAKE ONE TABLET BY MOUTH EVERY DAY TAKE ONE TABLET BY MOUTH EVERY DAY SOLD: 05/17/2020 [facility] Esomeprazole 40 MG Delayed Release Oral Capsule ESOMEPRAZOLE MAGNESIUM 02/09/2020 12:00:00 AM EDT capsule,delayed release(DR/EC) 90 TAKE 1 CAPSULE BY MOUTH ONCE A DAY TAKE 1 CAPSULE BY MOUTH ONCE A DAY SOLD: 05/01/2020 [facility] 750 mg 02/09/2020 12:00:00 AM EDT tablet extended release 24 hr 180 TAKE 1 TABLET BY MOUTH TWICE A DAY TAKE 1 TABLET BY MOUTH TWICE A DAY SOLD: 02/13/2020 [facility] 40 mg 02/09/2020 12:00:00 AM EDT capsule,delayed release (DR/EC) 90 TAKE 1 CAPSULE BY MOUTH ONCE A DAY TAKE 1 CAPSULE BY MOUTH ONCE A DAY SOLD: 02/13/2020 [facility] 750 mg 02/09/2020 12:00:00 AM EDT tablet extended release 24 hr 180 TAKE 1 TABLET BY MOUTH TWICE A DAY TAKE 1 TABLET BY MOUTH TWICE A DAY SOLD: 05/01/2020 [facility] 250 mg 01/01/2020 12:00:00 AM EDT tablet 60 TAKE 1 TABLET BY MOUTH TWICE A DAY NEEDED FOR PAIN MAXIMUM DAILY DOSE = 2 TABLETS TAKE 1 TABLET BY MOUTH TWICE A DAY NEEDED FOR PAIN MAXIMUM DAILY DOSE = 2 TABLETS SOLD: 01/02/2020 [facility] BLOOD-GLUCOSE METER 11/20/2019 12:00:00 AM EST misc 1 USE DIRECTED USE DIRECTED SOLD: 11/22/2019 [facility] 33 gauge 11/20/2019 12:00:00 AM EST misc 100 USE DIRECTED TO TEST TWICE DAILY USE DIRECTED TO TEST TWICE DAILY SOLD: 11/22/2019 [facility] 10 mg 11/19/2019 12:00:00 AM EST tablet 15 TAKE 1 TABLET BY MOUTH THREE TIMES DAILY NEEDED TAKE 1 TABLET BY MOUTH THREE TIMES DAILY NEEDED DOUGLAS [facility] BLOOD SUGAR DIAGNOSTIC 11/19/2019 12:00:00 AM EST strip 100 USE TO TEST TWICE DAILY DIRECTED USE TO TEST TWICE DAILY DIRECTED SOLD: 11/22/2019 [facility] 10 mg 11/16/2019 12:00:00 AM EST tablet 90 TAKE 1 TABLET BY MOUTH ONCE A DAY TAKE 1 TABLET BY MOUTH ONCE A DAY SOLD: 11/22/2019 [facility] 10 mg 11/16/2019 12:00:00 AM EST tablet 90 TAKE 1 TABLET BY MOUTH ONCE A DAY TAKE 1 TABLET BY MOUTH ONCE A DAY SOLD: 03/23/2020 [facility] 750 mg 11/16/2019 12:00:00 AM EST tablet extended release 24 hr 180 TAKE 1 TABLET BY MOUTH TWICE A DAY TAKE 1 TABLET BY MOUTH TWICE A DAY SOLD: 11/22/2019 [facility] 500 mg 10/13/2019 12:00:00 AM EST tablet 7 TAKE ONE TABLET BY MOUTH EVERY DAY FOR 7 DAYS TAKE ONE TABLET BY MOUTH EVERY DAY FOR 7 DAYS SOLD: 10/13/2019 [facility] Insurance Providers Payer name Policy type / Coverage type Policy ID Covered constitution party ID Covered constitution party's relationship to bautista Policy Bautista Plan Information BCBS [place] FIFI PPO 302/307 [id number] SP [id number] RAFAEL CLAIM ADMIN WORK O [id number] S [id number] PMA MANAGEMENT [employer] [id number] SP [id number] [place] 306/806 [id number] SP [id number] EXCELLUS BCBS B [id number] S VYS [place] PPO 302/307 [id number] SP [id number] Rafael Claims () Workers Compensation [id number] Self [id number] Pma Ins () Workers Compensation [id number] Self [id number] BS [place] Commercial [id number] Self [id number] [place] 306/806 [id number] SP [id number] [place] PPO 302/307 [id number] SP [id number] ANSI-Commercial [id number] [place] BCBS Health Maintenance Organization (HMO) [id number] Self [id number] [place] 306/806 [id number] SP [id number] [place] 306/806 [id number] SP [id number] Proclaim (DO Not Use!!) Commercial Self Pma Ins () Workers Compensation Self Special Funds-Dew () Workers Compensation Self BS Of [place] Commercial Self EX[place]LL[place] BCBS P [id number] S [id number] PMA MANAGEMENT [facility] P [id number] S [id number] SPECIAL FUNDS CONSERVATION-DEW [id number] SP [id number] PMA MANAGEMENT [employer] [facility] [id number] SP [id number] EXCELLUS BC-BS PPO 306 [id number] SP [id number] [place] 306/806 [id number] SP [id number] [facility]LY [facility] INSURANCE [facility] [id number] SP [id number] Problems, Conditions, and Diagnoses Code Display Name Description Problem Type Effective Dates Data Source(s) [id number] Pure hypercholesterolemia Pure hypercholesterolemia Pr oblem 12/31/2019 12:00:00 AM EDT [facility] ([facility] ) Results ID Date Data Source [id number] 11/23/2020 10:35:00 AM EST [facility] Name Value Range Interpretation Code Description Data Tessie rce(s) Supporting Document(s) SARS coronavirus 2 RNA Not Detected [facility] [place] This lab was ordered by [facility] and reported by [facility]. Procedure Vital Signs ID Date Data Source UNK Name Value Range Interpretation Code Description Data Source(s) Body surface area Derived from formula 1.78 m2 1.78 m2 [facility] ([facility] [place] [facility]) Body weight 76.205 kg 76.205 kg [facility] ([facility]) [place] body weight 110 [lb_av] 110 [lb_av] [facility] ([facility] [place] [facility]) Body mass index (BMI) [Ratio] 30.7 kg/m2 30.7 k g/m2 [facility] ([facility] [place] [facility]) Body weight 168.00 [lb_av] 168.00 [lb_av] [facility] ([facility] [place] [facility]) Body height 62 [in_i] 62 [in_i] [facility] ([facility]) 5'2" Diastolic blood pressure 82 mm[Hg] 82 mm[Hg] [facility] ([facility] [place] [facility]) Systolic blood pressure 132 mm[Hg] 132 mm[Hg] [facility] ([facility] [place] [facility])
--- OUTSIDE RECORDS SUMMARY | 2020-11-28 13:36 | CCD | Continuity of Care Document ---
Author Author [facility]ita [facility] Organization Unknown Address [address], [address] [place] [address] Phone [phone] Care Team Providers Care Welfare Visitor Name Role Phone Chad Moody M.D. AUTM [phone] Chad Moody M.D. AUTM [phone] Problems Description No Active Problems Social History Type Date Description Comments Sex Unknown ETOH Use Rarely Tobacco Use Start: Unknown End: Unknown Patient is a former smoker QUIT 1978 Recreational Drug Use Denies Drug Use Allergies, Adverse Reactions, Alerts Description No Known Drug Allergies Medications Active Medications SIG Qnty Indications Ordering Provide r Date Lisinopril 10mg Tablets once a day Unknown Hydrochlorothiazide 25mg Tablets 1 by mouth every day Unknown Metformin HCL ER 750mg Tablets ER 24HR 1 by mouth twice a day Unknown Atorvastatin Calcium 10mg Tablets 1 by mouth every day Unknown Naproxen DR 500mg Tablets DR 1 by mouth twice a day prn Unknown Flonase Allergy Relief 50mcg/Act Suspension 2 sprays each nares just before bed Unkno wn Claritin 10mg Tablets take one by mouth once a day. Unknown Nexium 40mg Capsules DR 1 by mouth every day Unknown Immunizations Description No Information Available Vital Signs Date Vital Result Comment 10/10/2020 2:59pm BP Systolic 132 mmHg BP Diastolic 82 mmHg Height 62 inches 5'2" Weight 168.00 lb BMI (Body Mass Index) 30.7 kg/m2 [place] Body Weight 110 lb Weight 76.205 kg BSA (Body Surface Area) 1.78 m2 06/02/2019 9:11am BP Systolic 123 mmHg BP Diastolic 83 mmHg Heart Rate 70 /min Height 62 inches 5'2" Weight 163.00 lb BMI (Body Mass Index) 29.8 kg/m2 [place] Body Weight 110 lb Weight 73.937 kg BSA (Body Surface Area) 1.75 m2 Results Description No Information Available Procedures Description No Information Available Medical Devices Description No Information Available Encounters Description No Information Available Assessments Date Code Description Provider 10/10/2020 R13.10 Dysphagia, unspecified DARBY Slaughter 10/10/2020 K21.9 Gastro-esophageal reflux disease without esophagitis DARBY Slaughter Plan of Treatment 10/10/2020 - DARBY Slaughter* R13.10 Dysphagia, unspecified * K21.9 Gastro-esophageal reflux disease without esophagitis * * New Xrays:* Barium Swallow, Esophogram, Ordered: 10/10/20 * New Orders:* Endoscopy with possible dilation, Ordered: 10/10/20 * Comments:* Will arrange for upper endoscopy with possible dilation. Reviewed risks and benefits of the procedure, as well as other options, with the patient. Prep for this procedure was discussed with patient. Patient verbalized understanding of all of the above and is in agreement to proceed. Patient will seek medical attention for any acute changes. Will monitor. * Follow up:* As scheduled, sooner if needed. Functional Status Description No Information Available Mental Status Description No Information Available Referrals Refer to Reason for Referral Status Appt Date Fred Davalos MD egd & dysphagia Scheduled 10/10/2020 [facility], Gastroenterology [address] [place] [address], [address] [place] [address] [phone]
--- NOTE | 2020-11-28 15:07 | ROOR ---
Patient Name: Martita Campuzano Procedure Date: 11/28/2020 2:51 PM Date of : 1960 Age: 60 Room: [facility] Gender: Female Note Status: Finalized Procedure: Upper GI endoscopy Indications: Oropharyngeal phase dysphagia Providers: Fred VELIZ MD Referring MD: Chad Moody MD Requesting Provider: Medicines: Monitored Anesthesia Care Complications: No immediate complications. Procedure: Pre-Anesthesia Assessment: - The heart rate, respiratory rate, oxygen saturations, blood pressure, adequacy of pulmonary ventilation, and response to care were monitored throughout the procedure. The Endoscope was introduced through the mouth, and advanced to the second part of duodenum. The upper GI endoscopy was accomplished without difficulty. The patient tolerated the procedure well. Findings: The esophagus was normal. The stomach was normal. The examined duodenum was normal. No endoscopic abnormality was evident in the esophagus to explain the patient's complaint of dysphagia. Impression: - Normal esophagus. - Normal stomach. - Normal examined duodenum. - No endoscopic esophageal abnormality to explain patient's dysphagia. - No specimens collected. Recommendation: - Observe patient's clinical course. - Follow an antireflux regimen. Procedure Code(s): --- Professional --- 18362, Esophagogastroduodenoscopy, flexible, transoral; diagnostic, including collection of specimen(s) by brushing or washing, when performed (separate procedure) Diagnosis Code(s): --- Professional --- R13.12, Dysphagia, oropharyngeal phase CPT copyright 2019 [employer]. All rights reserved. The codes documented in this report are preliminary and upon food and drug inspector review may be revised to meet current compliance requirements. Fred Veliz MD Fred VELIZ MD 11/28/2020 3:07:22 PM Electronically signed by Fred VELIZ MD Number of Addenda: 0 Note Initiated On: 11/28/2020 2:51 PM Estimated Blood Loss: Estimated blood loss: none.
[2020-11-28] MEDS ORDERED: propofoL 200 MG/20 ML VIAL As Ordered ONE (15:09)
[2020-11-28 15:30] VITALS: BP 130/60
== END 2020-11-28 15:47 | disposition home or self-care (01) ==
LOC: M OPP 13:29
PROVIDERS: ATTEND Internal Medicine Gastroenterology
DX: R13.12 Dysphagia, oropharyngeal phase (principal); I10 Essential (primary) hypertension; E78.5 Hyperlipidemia, unspecified; E11.9 Type 2 diabetes mellitus without complications; R12 Heartburn; M19.90 Unspecified osteoarthritis, unspecified site; G43.909 Migraine, unspecified, not intractable, without status migrainosus; F41.9 Anxiety disorder, unspecified; K21.9 Gastro-esophageal reflux disease without esophagitis; Z79.84 Long term (current) use of oral hypoglycemic drugs; Z79.899 Other long term (current) drug therapy; Z80.0 Family history of malignant neoplasm of digestive organs; Z80.1 Family history of malignant neoplasm of trachea, bronchus and lung; Z82.49 Family history of ischemic heart disease and other diseases of the circulatory system; Z83.6 Family history of other diseases of the respiratory system
CPT/HCPCS: 43235; J3010

== ENCOUNTER → 2020-12-12 | Outpatient (CLI) | payer BC ==
[~2020-12-12] MED LIST changes: -LIDOCAINE 2% 100MG/5ML SDV (FOR ANES.) As Ordered ONE; -NS 1,000 ML IV ONE; -fentaNYL 100 MCG/2 ML INJECTION (J3010) As Ordered ONE; -propofoL 200 MG/20 ML VIAL As Ordered ONE
[2020-12-12 10:47] LABS: BLOOD UREA NITROGEN 12 MG/DL (7-18); CREATININE FOR GFR 0.86 MG/DL (0.55-1.30); GLOMERULAR FILTRATION RATE > 60.0 (>51)
== END ==
LOC: M LAB 09:24
PROVIDERS: ATTEND Physician Assistant
DX: M54.2 Cervicalgia (principal)

== ENCOUNTER → 2020-12-14 | Outpatient (CLI) | payer BC, OTHER ==
[~2020-12-14] MED LIST changes: +PROHANCE 279.3MG/ML 15ML VIAL As Ordered ONE
--- NOTE | 2020-12-15 08:15 | REP ---
INDICATION: CERVICALGIA. COMPARISON: Comparison MRI study April 17, 2012.. TECHNIQUE: Sagittal and axial T1 and T2-weighted scans are acquired in the usual fashion with and without fat saturation. Sequences include spin echo, turbo spin-echo, and STIR imaging sequences. 14 mL of intravenous ProHance is administered and post gadolinium enhanced imaging is acquired in the axial and sagittal plane as well. FINDINGS: In the interval since the 25/09 exam, the patient has undergone ventral discectomy and fusion plating across the C5-6 and C6-7 disc spaces. Associated magnetic field susceptibility artifact is observed at these disc levels and ventrally along the cervical spine at these levels. Otherwise, cortical and medullary bone signal intensity is normal in the cervical spine. Vertebral body heights are preserved. Alignment is normal. Cervical cord is normal in course, caliber and signal intensity on T1 and T2 weighted scans. No cord compressive lesion is appreciated. At the C2-3 disc level there is no significant abnormality. At C3-4, there is minimal central disc bulging but no cord compression, focal disc protrusion, or foraminal narrowing. At C4-5, there is mild degenerative narrowing of the disc. There is mild diffuse disc bulging. Minimal uncovertebral spurring is present bilaterally. At C5-6, surgical disc fusion is visible. There is some artifact but no definite cord compression or residual or recurrent disc is seen. There is mild uncovertebral spurring bilaterally. C6-7, surgical fusion is seen. Mild bilateral uncovertebral spurring. C7-T1 there is no evidence of disc protrusion. Mild central disc bulging is seen. Exam is otherwise unremarkable. Post gadolinium enhanced images show no abnormal gadolinium enhancement. IMPRESSION: Status post ventral discectomy and fusion plating C5 through C7. No evidence of disc protrusion or, cord compression lesion, or spinal stenosis. Mild degenerative disc changes at C4-5 with mild bilateral uncovertebral spurring. <Electronically signed by Dirk Can > 12/15/20 [id number]
== END ==
LOC: M RAD 15:43
PROVIDERS: ATTEND Physician Assistant
DX: M54.2 Cervicalgia (principal); M25.78 Osteophyte, vertebrae; Z98.1 Arthrodesis status
CPT/HCPCS: 72156; A9576

== ENCOUNTER → 2021-08-08 | Outpatient (REF) ==
[~2021-08-08] MED LIST changes: -PROHANCE 279.3MG/ML 15ML VIAL As Ordered ONE
== END ==
LOC: M EMP 12:33
PROVIDERS: ATTEND Family Medicine
DX: Z20.822 Contact with and (suspected) exposure to COVID-19 (principal)

== ENCOUNTER → 2021-08-14 | Outpatient (REF) | LOC: M EMP 09:00 | PROVIDERS: ATTEND Family Medicine | DX: Z11.52 Encounter for screening for COVID-19 (principal); Z20.822 Contact with and (suspected) exposure to COVID-19 ==

== ENCOUNTER → 2021-09-03 | Outpatient (REF) ==
[2021-09-03 16:36] LABS: RSV AMPLIFICATION NEGATIVE (NEGATIVE)
== END ==
LOC: M EMP 15:33
PROVIDERS: ATTEND Family Medicine
DX: Z20.822 Contact with and (suspected) exposure to COVID-19 (principal)

== ENCOUNTER → 2021-10-30 | Outpatient (CLI) | payer BC ==
[2021-10-30 09:00] LABS: HEMATOCRIT 41.6 % (36.0-47.0); HEMOGLOBIN 13.2 g/dl (12.0-15.5); MEAN CORPUSCULAR HGB CONC 31.7 g/dl (32.0-36.5); MEAN CORPUSCULAR VOLUME 85.1 fl (80.0-96.0); PLATELET COUNT, AUTOMATED 171 10^3/uL (150-450); RED BLOOD COUNT 4.89 10^6/uL (4.00-5.40)
[2021-10-30 09:08] LABS: HEMOGLOBIN A1c 10.9 %
[2021-10-30 09:27] LABS: ALT/SGPT 53 U/L (12-78); BILIRUBIN,TOTAL 0.3 MG/DL (0.2-1.0); BLOOD UREA NITROGEN 14 MG/DL (7-18); CALCIUM LEVEL 8.8 MG/DL (8.5-10.1); CARBON DIOXIDE LEVEL 27 MEQ/L (21-32); CHLORIDE LEVEL 101 MEQ/L (98-107); CHOLESTEROL LEVEL 146 MG/DL (<200); CHOLESTEROL RISK RATIO 4.294 (<5); CREATININE FOR GFR 0.73 MG/DL (0.55-1.30); GLOMERULAR FILTRATION RATE > 60.0 (>51); GLUCOSE, FASTING 288 MG/DL (70-100); HDL CHOLESTEROL 34 MG/DL (>40); NON-HDL-C 112 MG/DL; POTASSIUM SERUM 3.1 MEQ/L (3.5-5.1); SODIUM LEVEL 138 MEQ/L (136-145); TRIGLYCERIDES LEVEL 293 MG/DL (<150)
[2021-10-30 09:28] LABS: ALBUMIN 3.9 GM/DL (3.2-5.2); LDL CHOLESTEROL 53 MG/DL (<100); TOTAL PROTEIN 7.7 GM/DL (6.4-8.2)
[2021-10-30 09:34] LABS: MALB URINE SIEMENS 23.3 MG/L; MAU/CREAT RATIO 17.9 MCG/MG (0.0-30.0)
== END ==
LOC: M LAB 07:22
PROVIDERS: ATTEND Family Medicine
DX: E11.9 Type 2 diabetes mellitus without complications (principal)

== ENCOUNTER → 2022-02-02 | Outpatient (REF) | LOC: M EMP 12:39 | PROVIDERS: ATTEND Family Medicine | DX: Z20.822 Contact with and (suspected) exposure to COVID-19 (principal) ==

== ENCOUNTER → 2023-01-22 | Outpatient (CLI) | payer BC ==
[2023-01-22 07:34] LABS: EOS # 0.1 10^3/uL (0.0-0.5); HEMATOCRIT 39.2 % (36.0-47.0); HEMOGLOBIN 12.7 g/dl (12.0-15.5); LYMPH # 1.5 10^3/uL (1.5-5.0); LYMPH % 37.3 % (24.0-44.0); MEAN CORPUSCULAR HEMOGLOBIN 28.8 pg (27.0-33.0); MEAN CORPUSCULAR HGB CONC 32.4 g/dl (32.0-36.5); MEAN CORPUSCULAR VOLUME 88.9 fl (80.0-96.0); MONO # 0.4 10^3/uL (0.0-0.8); MONO % 8.8 % (2.0-8.0); NEUTROPHILS % 49.6 % (36.0-66.0); PLATELET COUNT, AUTOMATED 193 10^3/uL (150-450); RED BLOOD COUNT 4.41 10^6/uL (4.00-5.40)
[2023-01-22 08:04] LABS: ALKALINE PHOSPHATASE 58 U/L (46-116); ALT/SGPT 37 U/L (7.0-40); AST/SGOT 13 U/L (<34); BILIRUBIN,TOTAL 0.4 MG/DL (0.3-1.2); BLOOD UREA NITROGEN 10 MG/DL (9-23); CALCIUM LEVEL 9.2 MG/DL (8.3-10.6); CARBON DIOXIDE LEVEL 29 MMOL/L (20-31); CHLORIDE LEVEL 103 MMOL/L (98-107); CHOLESTEROL LEVEL 121 MG/DL (<200); CHOLESTEROL RISK RATIO 3.84 (<5); CREATININE FOR GFR 0.62 MG/DL (0.55-1.30); GLOMERULAR FILTRATION RATE > 60.0 (>45); GLUCOSE, FASTING 149 MG/DL (74-106); HDL CHOLESTEROL 31.5 MG/DL (>40); LDL CHOLESTEROL 52.7 MG/DL (<100); NON-HDL-C 89.5 MG/DL; POTASSIUM SERUM 3.8 MMOL/L (3.5-5.1); SODIUM LEVEL 141 MMOL/L (136-145); TRIGLYCERIDES LEVEL 184 MG/DL (<150)
[2023-01-22 08:05] LABS: CREATININE, URINE 109.5 MG/DL; CREATININE,RANDOM URINE 109.5 MG/DL; MAU/CREAT RATIO 3.6 MCG/MG (0.0-30.0)
[2023-01-22 09:16] LABS: HEMOGLOBIN A1c 7.8 % (4.0-6.0)
== END ==
LOC: M LAB 07:12
PROVIDERS: ATTEND Family Medicine
DX: E11.9 Type 2 diabetes mellitus without complications (principal)

== ENCOUNTER 2023-09-05 07:25 | Emergency (ER) | payer BC ==
[~2023-09-05] VITALS: Ht 157.5 cm; Wt 68.5 kg
[2023-09-05] MEDS ORDERED: DULA3PEN (07:47)
[2023-09-05] MEDS ORDERED: TIZA2TA (07:47)
[2023-09-05] MEDS ORDERED: METF750T36 (07:47)
[2023-09-05] MEDS ORDERED: KETOROLAC 30 MG/ML 1ML VIAL IV ONE (08:00)
[2023-09-05 08:35] LABS: BASO % 0.5 % (0.0-1.0); EOS % 0.9 % (0.0-3.0); HEMATOCRIT 41.9 % (36.0-47.0); LYMPH # 1.2 10^3/uL (1.5-5.0); LYMPH % 27.5 % (24.0-44.0); MEAN CORPUSCULAR HEMOGLOBIN 28.5 pg (27.0-33.0); MEAN CORPUSCULAR HGB CONC 33.4 g/dl (32.0-36.5); MEAN CORPUSCULAR VOLUME 85.2 fl (80.0-96.0); MONO # 0.3 10^3/uL (0.0-0.8); MONO % 6.3 % (2.0-8.0); NEUTROPHILS # 2.9 10^3/uL (1.5-8.5); NEUTROPHILS % 64.6 % (36.0-66.0); PLATELET COUNT, AUTOMATED 207 10^3/uL (150-450); RED BLOOD COUNT 4.92 10^6/uL (4.00-5.40); WHITE BLOOD COUNT 4.4 10^3/uL (4.0-10.0)
[2023-09-05 09:03] LABS: BLOOD UREA NITROGEN 11 MG/DL (9-23); CALCIUM LEVEL 9.7 MG/DL (8.3-10.6); CARBON DIOXIDE LEVEL 26 MMOL/L (20-31); CHLORIDE LEVEL 98 MMOL/L (98-107); CREATININE FOR GFR 0.65 MG/DL (0.55-1.30); GLOMERULAR FILTRATION RATE > 60.0 (>45); GLUCOSE, FASTING 186 MG/DL (74-106); POTASSIUM SERUM 3.4 MMOL/L (3.5-5.1); SODIUM LEVEL 139 MMOL/L (136-145)
[2023-09-05] MEDS ORDERED: KETO10TAB PO (09:09)
[2023-09-05 09:30] VITALS: BP 124/57; TEMP 97.2; O2SAT 96
== END 2023-09-05 09:36 | disposition home or self-care (01) ==
LOC: M ED 07:25
DX: N20.1 Calculus of ureter (principal); E11.9 Type 2 diabetes mellitus without complications; I10 Essential (primary) hypertension; K21.9 Gastro-esophageal reflux disease without esophagitis; Z87.442 Personal history of urinary calculi; Z79.84 Long term (current) use of oral hypoglycemic drugs; Z79.899 Other long term (current) drug therapy
CPT/HCPCS: 74176; 80048; 81001; 85025; 96374; 99284; J1885

== ENCOUNTER → 2023-11-26 | Outpatient (REF) ==
[~2023-11-26] MED LIST changes: +DULA3PEN; +KETO10TAB PO; +METF750T36; +TIZA2TA
== END ==
LOC: M EMP 13:20
PROVIDERS: ATTEND Family Medicine
DX: Z11.52 Encounter for screening for COVID-19 (principal); Z53.9 Procedure and treatment not carried out, unspecified reason

== ENCOUNTER → 2024-03-30 | Outpatient (CLI) | payer BC ==
[~2024-03-30] MED LIST changes: +ONDA-282 PO; -ONDA4TAB6 PO
== END ==
LOC: M RAD 15:48
PROVIDERS: ATTEND Nurse Practitioner Family
DX: N20.0 Calculus of kidney (principal); N28.1 Cyst of kidney, acquired

== ENCOUNTER → 2024-11-19 | Outpatient (CLI) | payer BC ==
[2024-11-19 07:37] LABS: BASO % 0.9 % (0.0-1.0); EOS # 0.1 10^3/uL (0.0-0.5); EOS % 1.9 % (0.0-3.0); HEMOGLOBIN 12.3 g/dl (12.0-15.5); LYMPH # 1.4 10^3/uL (1.5-5.0); LYMPH % 32.2 % (24.0-44.0); MEAN CORPUSCULAR HEMOGLOBIN 26.9 pg (27.0-33.0); MEAN CORPUSCULAR HGB CONC 31.5 g/dl (32.0-36.5); MEAN CORPUSCULAR VOLUME 85.2 fl (80.0-96.0); MONO # 0.4 10^3/uL (0.0-0.8); MONO % 9.5 % (2.0-8.0); NEUTROPHILS # 2.3 10^3/uL (1.5-8.5); NEUTROPHILS % 55.3 % (36.0-66.0); PLATELET COUNT, AUTOMATED 223 10^3/uL (150-450); RED BLOOD COUNT 4.58 10^6/uL (4.00-5.40); WHITE BLOOD COUNT 4.2 10^3/uL (4.0-10.0)
[2024-11-19 08:06] LABS: ALKALINE PHOSPHATASE 58 U/L (35-104); ALT/SGPT 39 U/L (7.0-40); AST/SGOT 25 U/L (<34); BILIRUBIN,TOTAL 0.4 MG/DL (0.3-1.2); BLOOD UREA NITROGEN 12 MG/DL (9-23); CALCIUM LEVEL 9.5 MG/DL (8.3-10.6); CARBON DIOXIDE LEVEL 31 MMOL/L (20-31); CHLORIDE LEVEL 100 MMOL/L (98-107); CHOLESTEROL LEVEL 140 MG/DL (<200); CHOLESTEROL RISK RATIO 4.28 (<5); CREATININE FOR GFR 0.61 MG/DL (0.55-1.30); GLOMERULAR FILTRATION RATE > 60.0 (>45); GLUCOSE, FASTING 194 MG/DL (74-106); HDL CHOLESTEROL 32.7 MG/DL (>40); LDL CHOLESTEROL 57.5 MG/DL (<100); NON-HDL-C 107.3 MG/DL; POTASSIUM SERUM 3.2 MMOL/L (3.5-5.1); SODIUM LEVEL 142 MMOL/L (136-145); TOTAL PROTEIN 7.4 G/DL (5.7-8.2); TRIGLYCERIDES LEVEL 249 MG/DL (<150)
[2024-11-19 08:06] LABS: CREATININE, URINE 250.6 MG/DL; MAU/CREAT RATIO 6.7 MCG/MG (0.0-30.0)
[2024-11-19 08:13] LABS: HEMOGLOBIN A1c 8.6 % (4.0-6.0)
== END ==
LOC: M LAB 07:00
PROVIDERS: ATTEND Family Medicine
DX: E11.9 Type 2 diabetes mellitus without complications (principal)

== ENCOUNTER → 2025-05-04 | Outpatient (CLI) | payer BC | LOC: M RAD 16:00 | PROVIDERS: ATTEND Urology | DX: N20.0 Calculus of kidney (principal) ==

== ENCOUNTER → 2025-09-24 | Outpatient (CLI) | payer BC | LOC: M WUC 11:12 | DX: M25.511 Pain in right shoulder (principal); M54.50 Low back pain, unspecified ==